=== PATIENT | male | born 1985 | race Caucasian/White ===

== ENCOUNTER 2017-03-08 17:50 | Emergency (ER) | payer OTHER ==
[~2017-03-08] VITALS: Ht 175.3 cm; Wt 70.5 kg
[2017-03-08 17:55] VITALS: BP 115/70; PULSE 55; RESP 16; O2SAT 100
[2017-03-08] MEDS ORDERED: TdaP Vaccine 0.5 mL Inj IM ONE (18:50)
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
[2017-03-08] MEDS ORDERED: AMOX-366 PO (18:56)
[2017-03-08 19:24] VITALS: BP 121/81; PULSE 52; RESP 18; O2SAT 98
== END 2017-03-08 19:25 | disposition home or self-care (01) ==
LOC: SED 17:50
DX: S81.851A Open bite, right lower leg, initial encounter (principal); W54.0XXA Bitten by dog, initial encounter; Y93.55 Activity, bike riding; Y92.410 Unspecified street and highway as the place of occurrence of the external cause; Y99.8 Other external cause status; J45.909 Unspecified asthma, uncomplicated; Z23 Encounter for immunization